=== PATIENT | male | born 1945 | race Caucasian/White ===

== ENCOUNTER 2023-02-25 10:45 | Outpatient (CLI) | payer MEDICARE, OTHER ==
--- NOTE | 2023-02-25 13:05 | Ultrasound Report ---
PROCEDURE: Aorta Screening INDICATIONS: FAM HX OF CARDIOVASCULAR DISEASE TECHNIQUE: Real time scanning was performed of the aorta and iliac arteries, with image documentatio n. COMPARISON: None. FINDINGS: Aorta: Proximal aortic diameter measures 2.7 cm. Mid-aorta measures 2.6 cm. Distal aortic diameter is 2.5 cm. Iliac arteries: Right common iliac artery measures 1.1 cm. Left common iliac artery measures 1.1 cm . IMPRESSION: Ectatic mid aorta. Recommend follow-up in 5 years, per ACR consensus guidelines. Reviewed by: Rufino Reed on 02/25/2023 1:04 PM PDT Approved by: Rufino Reed on 02/25/2023 1:04 PM PDT Station ID: [id number]
== END 2023-02-25 10:46 | disposition home or self-care (01) ==
LOC: DI 10:45
PROVIDERS: ATTEND Nurse Practitioner Family
DX: Z13.6 Encounter for screening for cardiovascular disorders (principal); Z82.49 Family history of ischemic heart disease and other diseases of the circulatory system; Z87.891 Personal history of nicotine dependence; I77.811 Abdominal aortic ectasia

== ENCOUNTER 2023-06-18 11:36 | Outpatient (CLI) | payer MEDICARE, OTHER ==
[~2023-06-18 11:36] MED LIST: GADOTERATE MEGLUMINE 10 MMOL/20 ML VIAL ONE
[2023-06-18 11:56] LABS: CREATININE 1.2 mg/dL (0.6-1.3)
[2023-06-18] MEDS ORDERED: GADOTERATE MEGLUMINE 10 MMOL/20 ML VIAL IVP ONE (14:10)
--- NOTE | 2023-06-19 13:01 | MRI Report ---
PROCEDURE: PELVIS W/WO INDICATIONS: ELEVATED PSA CONTRAST: CLARISCAN 16.8 ML TECHNIQUE: Coronal ultra fast SE, axial T1 FSE with fat saturation, 3-plane nonbreath-hold T2 FSE. After the ad ministration of contrast, dynamic axial, delayed axial and coronal ultra fast GE or 2-D spoiled GE wi th fat saturation through the pelvis. Optional diffusion weighted imaging and ADC may be performed. COMPARISON: None. FINDINGS: Image quality: Diffusion weighted and dynamic contrast enhanced images are diagnostic. Prostate: Nodular hypertrophy of the transition zone and diffuse enlargement of the gland. Gland siz e is 6.4 x 6.6 x 5.7 cm; ellipsoid gland volume is 125 mL. There is patchy T1 hyperintensity in the right anterior transition zone near the gland base, potentially hemorrhage from prior biopsy. Otherwi se there is heterogeneous mild to moderate T2 hypointensity throughout the majority of the transition zone and several areas of T2 hypointense striated signal in the visible peripheral zone. A small ban dlike area of T2 hypointensity posterior lateral left peripheral zone at mid gland level has no corre sponding diffusion or ADC signal. There are no findings of a unique hyper enhancement postcontrast. Genitourinary system: Bladder wall thickness is normal. Distal ureters are non distended. Bowel and peritoneum: No pathologic free pelvic fluid. Inferior colon and small bowel loops are nor mal in caliber. Nodes and vessels: No pelvic or inguinal adenopathy by size criteria. Iliac vessels are normal in c aliber. Soft tissues: No inguinal hernias. Bones: Bone marrow demonstrates normal overall signal. No suspicious bony lesions. IMPRESSION: 1. Prostatomegaly without convincing lesions to suggest prostate carcinoma. 2. No pelvic adenopathy. Reviewed by: Jennifer Morris MD on 06/19/2023 1:00 PM PST Approved by: Jennifer Morris MD on 06/19/2023 1:00 PM PST Station ID: [id number]
== END 2023-06-18 11:37 | disposition home or self-care (01) ==
LOC: LAB 11:36
PROVIDERS: ATTEND Urology
DX: R97.20 Elevated prostate specific antigen [PSA] (principal); N40.0 Benign prostatic hyperplasia without lower urinary tract symptoms
CPT/HCPCS: 36415; 72197; 82565; A9575

== ENCOUNTER 2023-07-10 13:29 | Outpatient (CLI) | payer MEDICARE, OTHER ==
--- NOTE | 2023-07-13 19:05 | CT Report ---
PROCEDURE: Lung Cancer Screen INDICATIONS: LUNG CA SCREENING TECHNIQUE: A CT scan of the chest was performed. Intravenous contrast media was not administered. Images were re corded and evaluated at appropriate window settings. Reformats: axial MIP of the chest, coronal and s agittal. For radiation dose reduction, the following was used: automated exposure control, adjustment of mA and/or kV according to patient size. COMPARISON: None. FINDINGS: Image quality: Excellent. Prior cancer history: No. Lungs and pleura: No pleural effusions. No pneumothorax. Left fissure solid pulmonary nodule versus lymph node measuring 3 mm (4/45). Tiny cluster of centrilobular nodules in the right upper lobe (10/2 1, 4/35). Mediastinum: Heart size is normal. No pericardial effusion. No large vessel abnormality. No mediastin al adenopathy by size criteria. Three vessel coronary artery calcifications which are moderate to se blanca. Chest wall and lower neck: Thyroid is unremarkable. No axillary or supraclavicular adenopathy by size . Generator is in the bilateral chest fermin with leads extending in the anterior neck bilaterally. Bones: No aggressive osseous abnormality. No acute fracture. [id number] multilevel degenerative changes of the spine. Upper Abdomen: Unremarkable. IMPRESSION: 1. Left fissure solid pulmonary nodule versus lymph node measuring 3 mm. Lung RAD: 2 - Benign. Recommendation: Continue annual screening in 12 Months with LDCT 2. Tiny cluster of centrilobular nodules in the right upper lobe, likely bronchiolitis of infectious or inflammatory etiology. 3. Moderate to severe three-vessel coronary calcifications. Reviewed by: Lady Arguello MD on 07/13/2023 7:04 PM PST Approved by: Lady Arguello MD on 07/13/2023 7:04 PM PST Station ID: [id number]
== END 2023-07-10 13:30 | disposition home or self-care (01) ==
LOC: DI 13:29
PROVIDERS: ATTEND Registered Nurse
DX: Z12.2 Encounter for screening for malignant neoplasm of respiratory organs (principal); Z87.891 Personal history of nicotine dependence; R91.8 Other nonspecific abnormal finding of lung field